=== PATIENT | male | born 1975 | race Caucasian/White ===

== ENCOUNTER → 2017-05-28 | Outpatient (CLI) | payer OTHER, MEDICAID ==
[~2017-05-28] MED LIST: BACTRIM DS TAB1 EACH PO; BACTROBAN2% TP; CLINDAMYCIN HC300 MG PO; FLEXERIL10 MG PO; GABAPENTIN300 MG PO; HYDROCODONE-APA1 TA1 PO; LISINOPRIL5 MG NG; MOTRIN 600MG.600 MG PO; PREDNISONE 20MG20 MG PO; PROAIR RES117 MCG/Ac IH; PROMETHAZINE D120 ML PO; ZITHROMAX Z PA250 MG PO
[2017-05-28 16:37] LABS: AMPHETAMINES/METAMPHETAMINES NEGATIVE ng/mL (<1000)
== END ==
LOC: LAB 16:02
PROVIDERS: Emergency Medicine
DX: Z79.899 Other long term (current) drug therapy (principal)